=== PATIENT | male | born 1985 | race Caucasian/White ===

== ENCOUNTER 2018-07-13 03:06 | Emergency (ER) | payer OTHER ==
[~2018-07-13] VITALS: Ht 170.2 cm; Wt 93.2 kg
[2018-07-13 03:13] VITALS: TEMP 98
[2018-07-13 03:35] LABS: BASO % 0.3 % (0.0-2.0); EOS # 0.3 (0.0-0.7); EOS % 5.3 % (0-4.0); GRAN # 3.3 (1.4-6.5); GRAN % 51.3 % (42.2-75.2); HEMOGLOBIN 11.8 g/dl (13.5-18.0); LYMPH # 2.1 (1.2-3.4); LYMPH % 32.8 % (20.0-51.0); MEAN CELL VOLUME 88 fl (80.0-100.0); MEAN CORPUSCULAR HEMOGLOBIN 30 pg (27.0-31.0); MEAN CORPUSCULAR HGB CONC 34 g/dl (33.0-37.0); MEAN PLATELET VOLUME 10.7 fl (7.4-10.4); MONO # 0.6 (0.1-0.6); MONO % 9.8 % (1.7-9.3); PLATELET COUNT 167 K/mm3 (130-400); RED BLOOD COUNT 3.97 M/mm3 (4.20-5.60); REDCELL DISTRIBUTION WIDTH-CV 12.5 % (11.5-14.5)
[2018-07-13 03:36] LABS: HEMATOCRIT 34.9 % (42.0-52.0)
[2018-07-13 03:39] LABS: INR 1.1 (0.8-3.0); PROTHROMBIN TIME 12.3 SECONDS (9.7-12.8)
[2018-07-13 03:41] LABS: PARTIAL THROMBOPLASTIN TIME 34.5 SECONDS (26.0-37.0)
[2018-07-13 03:54] LABS: ALBUMIN 3.6 gm/dL (3.5-5.0); BILIRUBIN,TOTAL 0.4 mg/dL (0.0-1.0); CALCIUM 8.8 mg/dL (8.4-10.2); CREATININE, serum 0.79 (0.66-1.25); POTASSIUM 4.6 mmol/L (3.4-5.0); TOTAL PROTEIN 6.8 gm/dL (6.4-8.2)
[2018-07-13 04:17] LABS: C-REACTIVE PROTEIN 4.2 mg/dL (0.0-0.9)
[2018-07-13 04:24] LABS: COLLECTION METHOD CLEAN CATCH
[2018-07-13 04:30] LABS: MUCOUS Present /lpf; PH 5 (5-8); SQUAMOUS EPITHELIAL 0-2 /hpf; URINE APPEARANCE Clear; URINE BACTERIA None Seen /hpf; URINE BILIRUBIN Negative (NEGATIVE); URINE BLOOD Negative (NEGATIVE); URINE COLOR Yellow; URINE GLUCOSE Negative (NEGATIVE); URINE KETONE Negative (NEGATIVE); URINE LEUKOCYTE ESTERASE Negative (NEGATIVE); URINE NITRATE Negative (NEGATIVE); URINE PROTEIN(semi-quant) Negative (NEGATIVE); URINE RBC None Seen /hpf; URINE UROBILINOGEN Negative (NEGATIVE)
[2018-07-13] MEDS ORDERED: ULTRAM 50MG TAB50 MG PO (06:17)
[2018-07-13] MEDS ORDERED: CYMBALTA 20MG20 MG PO (06:18)
[2018-07-13] MEDS ORDERED: NEURONTIN800 MG/TAB PO (06:18)
[2018-07-13] MEDS ORDERED: PRINIVIL20 MG PO (06:18)
[2018-07-13 06:21] VITALS: BP 141/82; PULSE 66
== END 2018-07-13 06:21 | disposition home or self-care (01) ==
LOC: COL.ER 03:06
PROVIDERS: Emergency Medicine
DX: S30.1XXA Contusion of abdominal wall, initial encounter (principal); Z90.89 Acquired absence of other organs; Z98.52 Vasectomy status
CPT/HCPCS: J1170; J7030; Q9967